=== PATIENT | male | born 1945 | race Caucasian/White ===

== ENCOUNTER 2016-11-21 12:23 | Emergency (ER) | payer MEDICARE ==
[~2016-11-21] VITALS: Ht 172.7 cm; Wt 68.0 kg
[~2016-11-21 12:23] MED LIST: GABA-826 PO; METH-356 PO; SULF1TAB24 PO
[2016-11-21] MEDS ORDERED: SODIUM CHLORIDE 0.9% 1,000 ML IV ONE (12:59)
[2016-11-21] MEDS ORDERED: MORPHINE SULFATE 4 MG/ML, 1ML IVPush PRN (13:00)
[2016-11-21] MEDS ORDERED: SODIUM CHLORIDE FLUSH 10ML SYR IVF ONE (13:00)
[2016-11-21] MEDS ORDERED: NICOTINE 21 MG/24 HR PATCH.TD24 TD ONE (13:00)
[2016-11-21] MEDS ORDERED: ASPIRIN 81 MG TABLET CHEW PO ONE (13:00)
[2016-11-21] MEDS ORDERED: MORPHINE SULFATE 4 MG/ML, 1ML ONE (13:12)
[2016-11-21] MEDS ORDERED: NICOTINE 14MG/24 HR PATCH.TD24 ONE (13:13)
[2016-11-21] MEDS ORDERED: ASPIRIN 81 MG TABLET CHEW ONE (13:13)
[2016-11-21] MEDS ORDERED: NICOTINE 21 MG/24 HR PATCH.TD24 ONE (13:30)
[2016-11-21 13:46] LABS: HEMATOCRIT 38.5 % (39.2-51.8); WHITE BLOOD COUNT 11.7 x10^3/uL (3.4-10)
[2016-11-21 13:47] LABS: BLOOD UREA NITROGEN 19 mg/dL (7-18)
[2016-11-21 13:53] LABS: IS PT STATUS REG ER OR PRE ER? YES
[2016-11-21 16:42] VITALS: BP 143/57
== END 2016-11-21 16:44 | disposition home or self-care (01) ==
LOC: ED 14:25
DX: J20.8 Acute bronchitis due to other specified organisms (principal); E11.9 Type 2 diabetes mellitus without complications; F17.200 Nicotine dependence, unspecified, uncomplicated
CPT/HCPCS: 36415; 71020; 80048; 82040; 83880; 84484; 85025; 93005; 96361; 96374; 99285; J7030

== ENCOUNTER 2017-03-23 06:00 | Emergency (ER) | payer MEDICARE ==
[~2017-03-23] VITALS: Ht 172.7 cm; Wt 64.0 kg
[2017-03-23] MEDS ORDERED: HYDROcodone/APAP 5/325 TABLET PO ONE (07:00)
[2017-03-23] MEDS ORDERED: HYDROcodone/APAP 5/325 TABLET ONE (07:31)
[2017-03-23 08:34] VITALS: BP 155/86
== END 2017-03-23 08:50 | disposition home or self-care (01) ==
LOC: ED 08:00
DX: S39.012A Strain of muscle, fascia and tendon of lower back, initial encounter (principal); E11.9 Type 2 diabetes mellitus without complications; M54.32 Sciatica, left side; X58.XXXA Exposure to other specified factors, initial encounter; Y93.89 Activity, other specified; Y92.89 Other specified places as the place of occurrence of the external cause; Y99.9 Unspecified external cause status
CPT/HCPCS: 99284

== ENCOUNTER 2017-05-05 20:51 | Emergency (ER) | payer MEDICARE ==
[2017-05-09] MEDS ORDERED: DOXY100T10 PO (14:52)
[2017-05-09] MEDS ORDERED: CEFD300C37 PO (14:52)
[2017-05-09] MEDS ORDERED: FLUT1BLS INH (14:52)
[2017-05-09] MEDS ORDERED: ASPI-621 PO (14:59)
== END 2017-05-05 22:22 | disposition home or self-care (01) ==
LOC: ED 21:12
DX: R11.2 Nausea with vomiting, unspecified (principal); E11.9 Type 2 diabetes mellitus without complications; Z59.0 Homelessness
CPT/HCPCS: 99283

== ENCOUNTER 2018-06-05 01:39 | Emergency (ER) | payer MEDICARE ==
[~2018-06-05] VITALS: Ht 175.3 cm; Wt 73.0 kg
[~2018-06-05 01:39] MED LIST changes: +ASPI81TA45 PO; +CEFD300C37 PO; +DOXY100T10 PO; +FLUT1BLS INH; -METH-356 PO; +METH10TA2 PO
[2018-06-05] MEDS ORDERED: HYDROcodone/APAP 5/325 TABLET PO STA (01:48)
[2018-06-05] MEDS ORDERED: HYDROcodone/APAP 5/325 TABLET ONE (01:52)
--- NOTE | 2018-06-05 01:56 | NUR ---
PT MEDICATED PER MAY. AWAITING XRAY
[2018-06-05 02:09] VITALS: BP 135/70
--- NOTE | 2018-06-05 02:28 | NUR ---
ORDER RECEIVED PT MAY HAVE DIET PER ERP, PROVIDED PT WITH SANDWICH AND JUICE
== END 2018-06-05 03:10 | disposition home or self-care (01) ==
LOC: ED 02:02
DX: S42.022A Displaced fracture of shaft of left clavicle, initial encounter for closed fracture (principal); E11.9 Type 2 diabetes mellitus without complications; W01.0XXA Fall on same level from slipping, tripping and stumbling without subsequent striking against object, initial encounter; Y93.89 Activity, other specified; Y92.009 Unspecified place in unspecified non-institutional (private) residence as the place of occurrence of the external cause; Y99.8 Other external cause status
CPT/HCPCS: 99283

== ENCOUNTER 2018-08-27 05:50 | Emergency (ER) | payer MEDICARE ==
[~2018-08-27] VITALS: Ht 175.3 cm; Wt 64.0 kg
[2018-08-27 05:51] VITALS: BP 137/90
[2018-08-27] MEDS ORDERED: OXYcodone/APAP 5/325MG TABLET ONE (06:20)
[2018-08-27] MEDS ORDERED: KETOROLAC 30 MG/1 ML ONE (06:20)
[2018-08-27] MEDS ORDERED: OXYcodone/APAP 5/325MG TABLET PO ONE (06:30)
[2018-08-27] MEDS ORDERED: KETOROLAC 30 MG/1 ML IM ONE (06:30)
--- NOTE | 2018-08-27 06:37 | NUR ---
PT. HAS BEEN MEDICATED PER MAR. PT. STATES "THIS 5MG IS NOTHING, IT WON'T DO NOTHING". PT. DID TAKE MEDS ORDERED PER MAY. PT. STATES "THEY CAME TO GET ME FOR X-RAY BUT I REFUSED BECAUSE I AM JUST IN TOO MUCH PAIN."
--- NOTE | 2018-08-27 06:50 | NUR ---
CALLED RADIOLOGY TO LET THEM KNOW PT. HAS HAD PAIN MEDS AND NEEDS X-RAYS NOW.
--- NOTE | 2018-08-27 07:00 | NUR ---
I AM ASSUMING CARE OF THIS PT FROM MAGGIE (BILLY) AT THIS TIME. SBAR REPORT WAS EXCHANGED AT THE BEDSIDE.
--- NOTE | 2018-08-27 07:07 | NUR ---
PT TO XR W TECH
== END 2018-08-27 07:58 | disposition home or self-care (01) ==
LOC: ED 07:54
DX: S33.5XXA Sprain of ligaments of lumbar spine, initial encounter (principal); E11.9 Type 2 diabetes mellitus without complications; W01.0XXA Fall on same level from slipping, tripping and stumbling without subsequent striking against object, initial encounter; Y93.89 Activity, other specified; Y92.89 Other specified places as the place of occurrence of the external cause; Y99.8 Other external cause status
CPT/HCPCS: 72110; 73502; 96372; 99283; J1885

== ENCOUNTER 2018-08-29 10:58 | Emergency (ER) | payer MEDICARE ==
[~2018-08-29] VITALS: Ht 175.3 cm; Wt 66.0 kg
[2018-08-29 11:01] VITALS: BP 157/94
--- NOTE | 2018-08-29 11:18 | NUR ---
MEDICAL STUDENT AT BEDSIDE EVALUATING PATIENT.
[2018-08-29] MEDS ORDERED: BUPRENORPHINE/NALOXONE 2-0.5MG SL ONE (12:00)
--- NOTE | 2018-08-29 14:26 | NUR ---
Lorie RN note: Pt was dc'd and walked out of department. Pt then came back to registration desk to ask for transport home. Pt offered bus pass for transport home. Pt declines this. Pt offered to use phone to call someone to come pick him up. Pt in lobby using phone.
== END 2018-08-29 14:29 | disposition home or self-care (01) ==
LOC: ED 14:23
DX: F11.23 Opioid dependence with withdrawal (principal); F17.200 Nicotine dependence, unspecified, uncomplicated; G89.29 Other chronic pain; E11.9 Type 2 diabetes mellitus without complications
CPT/HCPCS: 99283; J0572

== ENCOUNTER 2019-02-07 20:16 | Emergency (ER) | payer MEDICARE ==
[~2019-02-07] VITALS: Ht 172.7 cm; Wt 71.1 kg
[~2019-02-07 20:16] MED LIST changes: +BUPR1FIL SL; -DOXY100T10 PO; +DOXY100T23 PO; +OXYB5TAB2 PO
[2019-02-07 20:30] VITALS: BP 164/110
--- NOTE | 2019-02-07 23:52 | NUR ---
VAPE AND CAN WILDFIRE PREVENTION SPECIALIST IN SECURITY
--- NOTE | 2019-02-08 00:27 | NUR ---
pt states he just wants his perscription for antibiotics and wants to leave. pt asked for rx for suboxone, dr manzanares educated that is not an rx we can write here but we will give him abx for his pneumonia
--- NOTE | 2019-02-08 00:34 | NUR ---
pt provided with rx and ambulated with steady gait to the dc desk
== END 2019-02-08 00:36 | disposition home or self-care (01) ==
LOC: ED 23:54
DX: J15.9 Unspecified bacterial pneumonia (principal); Z72.9 Problem related to lifestyle, unspecified; F17.210 Nicotine dependence, cigarettes, uncomplicated; E11.9 Type 2 diabetes mellitus without complications
CPT/HCPCS: 71046; 99283; 99406

== ENCOUNTER 2019-02-08 06:52 | Emergency (ER) | payer MEDICARE ==
[~2019-02-08] VITALS: Ht 175.3 cm; Wt 70.0 kg
--- NOTE | 2019-02-08 07:30 | NUR ---
Pt to ER for cough and request that he be given medications for his pneumonia. Recent admission for PNX, states he was d/c w/out meds. Returned via ER yesterday and was given Rx for zithromax according to ED chart from 02/07. Pt states he was not given any meds or prescription. Occasional cough, no distress, refuses to wear gown after several requests "I'm fine, I don't need to put it on".
[2019-02-08] MEDS ORDERED: ALBUTEROL/IPRATROPIUM 2.5MG/0.5MG, 3 ML ONE (07:48)
[2019-02-08] MEDS ORDERED: ALBUTEROL/IPRATROPIUM 2.5MG/0.5MG, 3 ML NPPB ONE (08:00)
[2019-02-08 08:02] LABS: ALBUMIN 2.7 g/dL (3.4-5.0); ANION GAP 8 mmol/L (5-15); CALCIUM 8.4 mg/dL (8.5-10.1); CHLORIDE 106 mmol/L (98-107); CREATININE 0.93 mg/dL (0.7-1.3)
[2019-02-08 08:03] LABS: BASOPHILS # (AUTO) 0.06 x10^3/uL (0-0.1); BASOPHILS % (AUTO) 1 % (0-1); EOSINOPHILS # (AUTO) 0.09 x10^3/uL (0-0.4); EOSINOPHILS % (AUTO) 1 % (1-7); LYMPHOCYTES # (AUTO) 1.84 x10^3/uL (1-3.4); LYMPHOCYTES % (AUTO) 20 % (22-44); MD NO; MEAN CORPUSCULAR HGB CONC 32.9 g/dL (33.2-36.2); MEAN PLATELET VOLUME 7.7 fL (7.4-10.4); MONOCYTES # (AUTO) 1.03 x10^3/uL (0.2-0.8); MONOCYTES % (AUTO) 11 % (2-9); NEUTROPHILS # (AUTO) 6.38 x10^3/uL (1.8-6.8); NEUTROPHILS % (AUTO) 68 % (42-75); PLATELET COUNT 243 x10^3/uL (130-400); RED CELL DISTRIBUTION WIDTH 13.7 % (9.4-14.8)
--- NOTE | 2019-02-08 08:07 | NUR ---
Pt sleeping after duoneb. On continuous pulse oximetry, 82-88% while sleeping. Placed on 2 liters via NC: 90%.
[2019-02-08] MEDS ORDERED: LEVOFLOXACIN 750 MG TABLET PO ONE (08:30)
[2019-02-08] MEDS ORDERED: LEVOFLOXACIN 750 MG TABLET ONE (09:07)
--- NOTE | 2019-02-08 09:17 | NUR ---
Medicated as per emar. Patient given discharge instructions and they have confirmed that they understand the instructions. Patient ambulatory with steady gait. Rx assistance info provided. Noticed d/c papers & rx from previous visit as well & pointed this out to pt where it was located so he does not misplace it again.
[2019-02-08 09:18] VITALS: BP 117/67
== END 2019-02-08 09:20 | disposition home or self-care (01) ==
LOC: ED 08:57
DX: J18.0 Bronchopneumonia, unspecified organism (principal); E11.9 Type 2 diabetes mellitus without complications; F17.200 Nicotine dependence, unspecified, uncomplicated; Z72.9 Problem related to lifestyle, unspecified; Z59.0 Homelessness
CPT/HCPCS: 36415; 80048; 82040; 83605; 84145; 85025; 94640; 99283; J7620

== ENCOUNTER 2019-04-15 00:49 | Inpatient (IN) | payer MEDICARE ==
[~2019-04-15] VITALS: Ht 172.7 cm; Wt 70.3 kg
[~2019-04-15 00:49] MED LIST changes: +OXYB-39 PO; -OXYB5TAB2 PO
--- NOTE | 2019-04-15 00:50 | NUR ---
BIB [facility] FROM [facility] WHERE PT WAS FOUND LAYING IN [place]. HYPOXIC ON SCENE, SPO2 80'S ON RA. RR 8-12. IMPROVED TO >90% ON 2L BY NC. PT MOSTLY SLEEPY BUT ARROUSABLE TO VOICE AND LIGHT PHYSICAL STIM. ONCE AWAKENED PT A&OX4, SPEECH CLEAR AND FOLLOWS ALL COMMANDS. PT QUICKLY FALLS BACK TO SLEEP. FACE SYMMETRICAL, +STRENGTH X ALL EXTREMITIES. NO OPEN WOUNDS OR EVIDENCE OF TRAUMA. FSBS CAR DISPATCHER 160 BP/SPO2/ECG MONITORING IN PLACE. NSR ON MONITOR.
[2019-04-15] MEDS ORDERED: SODIUM CHLORIDE FLUSH 10ML SYR IVF ONE (01:30)
[2019-04-15] MEDS ORDERED: PIPERACILLIN/TAZO/PMX 4.5GM 100 ML IV ONE (01:30)
[2019-04-15] MEDS ORDERED: SODIUM CHLORIDE 0.9% 1,000ML IVBOLUS ONE (01:30)
--- NOTE | 2019-04-15 01:30 | NUR ---
RR 8-12. SPO2 >90% ON 2L BY NC. PT REMAINS EASILY ARROUSABLE TO VOICE.
[2019-04-15 01:32] LABS: ALANINE AMINOTRANSFERASE 15 U/L (12-78); ALBUMIN 3.3 g/dL (3.4-5.0); ANION GAP 8 mmol/L (5-15); BASOPHILS # (AUTO) 0.03 x10^3/uL (0-0.1); BASOPHILS % (AUTO) 1 % (0-1); CHLORIDE 106 mmol/L (98-107); CREATININE 1.34 mg/dL (0.7-1.3); EOSINOPHILS # (AUTO) 0.02 x10^3/uL (0-0.4); EOSINOPHILS % (AUTO) 0 % (1-7); LYMPHOCYTES # (AUTO) 1.17 x10^3/uL (1-3.4); LYMPHOCYTES % (AUTO) 21 % (22-44); MD NO; MEAN CORPUSCULAR HEMOGLOBIN 26.7 pg (27.5-34.5); MEAN CORPUSCULAR HGB CONC 33.4 g/dL (33.2-36.2); MEAN CORPUSCULAR VOLUME 80.1 fL (81-97); MEAN PLATELET VOLUME 7.8 fL (7.4-10.4); MONOCYTES # (AUTO) 0.95 x10^3/uL (0.2-0.8); MONOCYTES % (AUTO) 17 % (2-9); NEUTROPHILS % (AUTO) 61 % (42-75); PLATELET COUNT 197 x10^3/uL (130-400); RED BLOOD COUNT 5.24 x10^6/uL (4.38-5.82); RED CELL DISTRIBUTION WIDTH 15.8 % (9.4-14.8)
[2019-04-15 01:34] LABS: ALKALINE PHOSPHATASE 96 U/L (45-117); BILIRUBIN,TOTAL 0.5 mg/dL (0.2-1.0); TOTAL PROTEIN 7.4 g/dL (6.4-8.2)
--- NOTE | 2019-04-15 02:00 | NUR ---
ABX INITIATED PER ORDER. BC X2 DRAWN PRIOR TO ABX ADMIN. ETCO2 PLACED, 44. PT CONTINUES TO BE MOSTLY DROWSY, EASILY ARROUSABLE TO VOICE THEN RETURNS QUICKLY TO SLEEP. AIRWAY REMAINS PATENT.
[2019-04-15] MEDS ORDERED: LACTATED RINGERS 1,000 ML IV SCH (03:00)
[2019-04-15] MEDS ORDERED: ACETAMINOPHEN 325 MG TABLET PO PRN (03:00)
[2019-04-15] MEDS ORDERED: PHARMACY MAY ADJ FOR RENAL FX MC PRN (03:00)
[2019-04-15 03:17] LABS: TROPONIN I < 0.015 ng/mL (0.000-0.045)
[2019-04-15 03:37] VITALS: BP 125/74
[2019-04-15 03:37] LABS: FREE T4 (FREE THYROXINE) 1.06 ng/dL (0.76-1.46)
[2019-04-15 06:18] VITALS: BP 135/74
[2019-04-15 06:20] VITALS: BP 131/63
[2019-04-15 06:25] VITALS: BP 120/80
[2019-04-15] MEDS: PIPERACILLIN/TAZO/PMX 3.375GM 50 ML IV SCH ×3 (07:45→20:20)
[2019-04-15 09:19] LABS: TROPONIN I < 0.015 ng/mL (0.000-0.045)
[2019-04-15] MEDS: NICOTINE 21 MG/24 HR PATCH.TD24 TD SCH (12:05)
[2019-04-15 12:16] VITALS: BP 132/60
[2019-04-15 14:51] LABS: MICROSCOPIC AUTO
[2019-04-15 14:56] LABS: CULTURE INDICATED? NO
[2019-04-15 14:59] LABS: AMPHETAMINE SCREEN, URINE Negative (Negative); BARBITURATE SCREEN, URINE Negative (Negative); BENZODIAZEPINE SCREEN, URINE Negative (Negative); CANNABINOID SCREEN, URINE Negative (Negative); COCAINE SCREEN, URINE Positive (Negative); METHADONE SCREEN, URINE Negative (Negative); OPIATE SCREEN, URINE Positive (Negative)
[2019-04-15 19:33] VITALS: BP 146/81
[2019-04-15] MEDS: LORazepam 2 MG/ML, 1ML IVPush PRN (21:10)
[2019-04-16] VITALS (7 sets, daily range): BP systolic 122–181; BP diastolic 65–95
[2019-04-16] MEDS: PIPERACILLIN/TAZO/PMX 3.375GM 50 ML IV SCH ×4 (01:35→20:30)
[2019-04-16] MEDS: LORazepam 2 MG/ML, 1ML IVPush PRN ×2 (06:26→15:12)
[2019-04-16] MEDS ORDERED: SODIUM CHLORIDE 0.9% 1,000 ML IV SCH (10:00)
[2019-04-16 11:02] LABS: ANION GAP 7 mmol/L (5-15); CALCIUM 8.5 mg/dL (8.5-10.1); CHLORIDE 110 mmol/L (98-107); CREATININE 1.43 mg/dL (0.7-1.3)
[2019-04-16 11:42] LABS: CLOSTRIDIUM DIFFICILE ANTIGEN NEGATIVE; CLOSTRIDIUM DIFFICILE TOXIN NEGATIVE (Negative)
[2019-04-16] MEDS: NICOTINE 21 MG/24 HR PATCH.TD24 TD SCH (12:26)
[2019-04-16] MEDS: LOPERAMIDE 2 MG CAPSULE PO SCH ×2 (13:10→20:30)
[2019-04-16] MEDS: AMLODIPINE 5 MG TABLET PO SCH ×2 (14:22→20:30)
[2019-04-16] MEDS ORDERED: hydrALAzine 20 MG/ML, 1ML IV PRN (14:30)
[2019-04-16] MEDS: SODIUM CHLORIDE 0.9% 1,000 ML IV SCH (17:06)
[2019-04-16] MEDS: METHADONE 10 MG TABLET PO SCH (17:06)
[2019-04-17] MEDS: METHADONE 10 MG TABLET PO SCH ×3 (00:50→16:30)
[2019-04-17 01:01] VITALS: BP 156/76
[2019-04-17] MEDS: PIPERACILLIN/TAZO/PMX 3.375GM 50 ML IV SCH ×4 (01:49→23:21)
[2019-04-17] MEDS: SODIUM CHLORIDE 0.9% 1,000 ML IV SCH ×2 (01:52→15:48)
[2019-04-17] MEDS: LOPERAMIDE 2 MG CAPSULE PO SCH ×4 (01:52→21:57)
[2019-04-17 06:14] LABS: ANION GAP 6 mmol/L (5-15); CALCIUM 8.2 mg/dL (8.5-10.1); CHLORIDE 109 mmol/L (98-107)
[2019-04-17 06:15] LABS: CREATININE 1.11 mg/dL (0.7-1.3)
[2019-04-17 07:22] VITALS: BP 169/88
[2019-04-17] MEDS: NICOTINE 21 MG/24 HR PATCH.TD24 TD SCH (08:10)
[2019-04-17] MEDS: AMLODIPINE 5 MG TABLET PO SCH ×2 (08:10→21:57)
[2019-04-17 13:55] VITALS: BP 174/86
[2019-04-17] MEDS ORDERED: HALOPERIDOL 5 MG/ML ONE (13:57)
[2019-04-17] MEDS ORDERED: HALOPERIDOL 5 MG/ML IM PRN (14:00)
[2019-04-17 21:11] VITALS: BP 150/88
[2019-04-17] MEDS: QUETIAPINE 25MG TABLET PO SCH (21:57)
[2019-04-18 01:15] VITALS: BP 133/69
[2019-04-18] MEDS: METHADONE 10 MG TABLET PO SCH ×3 (01:27→17:00)
[2019-04-18] MEDS: LOPERAMIDE 2 MG CAPSULE PO SCH ×4 (01:28→20:33)
[2019-04-18] MEDS: PIPERACILLIN/TAZO/PMX 3.375GM 50 ML IV SCH ×4 (05:33→22:57)
[2019-04-18 08:54] VITALS: BP 156/89
[2019-04-18] MEDS: AMLODIPINE 5 MG TABLET PO SCH ×2 (09:25→20:33)
[2019-04-18] MEDS: SODIUM CHLORIDE 0.9% 1,000 ML IV SCH (09:25)
[2019-04-18] MEDS: NICOTINE 21 MG/24 HR PATCH.TD24 TD SCH (11:13)
[2019-04-18 14:35] VITALS: BP 132/77
[2019-04-18 19:37] VITALS: BP 114/68
[2019-04-18] MEDS: QUETIAPINE 25MG TABLET PO SCH (20:33)
[2019-04-19 00:52] VITALS: BP 110/71
[2019-04-19] MEDS: METHADONE 10 MG TABLET PO SCH ×3 (01:16→17:22)
[2019-04-19] MEDS: LOPERAMIDE 2 MG CAPSULE PO SCH ×4 (01:16→20:05)
[2019-04-19] MEDS: PIPERACILLIN/TAZO/PMX 3.375GM 50 ML IV SCH ×4 (05:24→23:13)
[2019-04-19 06:48] VITALS: BP 138/76
[2019-04-19] MEDS: AMLODIPINE 5 MG TABLET PO SCH ×2 (08:32→20:05)
[2019-04-19 11:02] LABS: ALANINE AMINOTRANSFERASE 24 U/L (12-78); ALBUMIN 2.9 g/dL (3.4-5.0); ANION GAP 7 mmol/L (5-15); CALCIUM 8.2 mg/dL (8.5-10.1); CHLORIDE 106 mmol/L (98-107); CREATININE 1.09 mg/dL (0.7-1.3)
[2019-04-19 11:04] LABS: ALKALINE PHOSPHATASE 76 U/L (45-117); BILIRUBIN,TOTAL 0.7 mg/dL (0.2-1.0); TOTAL PROTEIN 7.1 g/dL (6.4-8.2)
[2019-04-19] MEDS: NICOTINE 21 MG/24 HR PATCH.TD24 TD SCH (12:45)
[2019-04-19 13:23] VITALS: BP 157/77
[2019-04-19 19:44] VITALS: BP 147/63
[2019-04-19] MEDS: QUETIAPINE 25MG TABLET PO SCH (20:05)
[2019-04-20 00:39] VITALS: BP 157/95
[2019-04-20] MEDS: METHADONE 10 MG TABLET PO SCH ×2 (01:00→08:53)
[2019-04-20] MEDS: LOPERAMIDE 2 MG CAPSULE PO SCH ×4 (01:37→21:06)
[2019-04-20 02:02] VITALS: BP 140/76
[2019-04-20] MEDS ORDERED: POTASSIUM PHOSPHATE 22 MEQ in SODIUM CHLORIDE 0.9% 500 ML IV ONE (03:00)
[2019-04-20] MEDS: PIPERACILLIN/TAZO/PMX 3.375GM 50 ML IV SCH ×4 (05:25→22:54)
[2019-04-20 06:39] VITALS: BP 151/79
[2019-04-20] MEDS ORDERED: MAGNESIUM SULFATE/D5W 100 ML IV ONE (08:00)
[2019-04-20] MEDS: AMLODIPINE 5 MG TABLET PO SCH ×2 (08:38→21:06)
[2019-04-20] MEDS ORDERED: NALOXONE 1 MG/ML, 2ML IVPush ONE (09:00)
[2019-04-20] MEDS ORDERED: METHADONE 10 MG TABLET PO SCH (09:30)
[2019-04-20] MEDS ORDERED: METHADONE 5 MG TABLET ONE (09:32)
[2019-04-20] MEDS: NICOTINE 21 MG/24 HR PATCH.TD24 TD SCH (09:34)
[2019-04-20] MEDS: METHADONE 5 MG TABLET PO SCH ×4 (09:34→21:14)
[2019-04-20 12:19] VITALS: BP 135/73
[2019-04-20] MEDS ORDERED: FUROSEMIDE 40 MG/4 ML IV ONE (17:30)
[2019-04-20 18:33] VITALS: BP 118/61
[2019-04-20] MEDS: QUETIAPINE 25MG TABLET PO SCH ×2 (21:06→21:11)
[2019-04-21] MEDS: LOPERAMIDE 2 MG CAPSULE PO SCH ×4 (01:30→20:08)
[2019-04-21 01:47] VITALS: BP 118/67
[2019-04-21] MEDS: PIPERACILLIN/TAZO/PMX 3.375GM 50 ML IV SCH ×4 (05:08→23:07)
[2019-04-21 06:43] VITALS: BP 141/68
[2019-04-21] MEDS: AMLODIPINE 5 MG TABLET PO SCH ×2 (08:17→20:08)
[2019-04-21] MEDS: METHADONE 5 MG TABLET PO SCH ×2 (09:46→20:08)
[2019-04-21 11:00] LABS: ANION GAP 9 mmol/L (5-15); BASOPHILS # (AUTO) 0.02 x10^3/uL (0-0.1); BASOPHILS % (AUTO) 0 % (0-1); CALCIUM 8.4 mg/dL (8.5-10.1); CHLORIDE 104 mmol/L (98-107); EOSINOPHILS # (AUTO) 0.07 x10^3/uL (0-0.4); EOSINOPHILS % (AUTO) 1 % (1-7); HEMOGRAM NOTE RECHECKED; LYMPHOCYTES # (AUTO) 2.41 x10^3/uL (1-3.4); LYMPHOCYTES % (AUTO) 19 % (22-44); MD NO; MEAN CORPUSCULAR HEMOGLOBIN 26.5 pg (27.5-34.5); MEAN CORPUSCULAR HGB CONC 32.5 g/dL (33.2-36.2); MEAN CORPUSCULAR VOLUME 81.4 fL (81-97); MEAN PLATELET VOLUME 7.9 fL (7.4-10.4); MONOCYTES # (AUTO) 0.74 x10^3/uL (0.2-0.8); MONOCYTES % (AUTO) 6 % (2-9); NEUTROPHILS # (AUTO) 9.66 x10^3/uL (1.8-6.8); NEUTROPHILS % (AUTO) 75 % (42-75); PLATELET COUNT 259 x10^3/uL (130-400); RED CELL DISTRIBUTION WIDTH 16.5 % (9.4-14.8)
[2019-04-21 11:01] LABS: CREATININE 1.26 mg/dL (0.7-1.3)
[2019-04-21] MEDS: NICOTINE 21 MG/24 HR PATCH.TD24 TD SCH (11:17)
[2019-04-21 12:03] VITALS: BP 142/70
[2019-04-21] MEDS ORDERED: SODIUM CHLORIDE 0.9% 1,000 ML IV SCH ×2 (17:30)
[2019-04-21 19:16] VITALS: BP 157/82
[2019-04-21] MEDS: QUETIAPINE 25MG TABLET PO SCH (20:08)
[2019-04-22 00:47] VITALS: BP 148/71
[2019-04-22] MEDS: LOPERAMIDE 2 MG CAPSULE PO SCH ×4 (00:53→20:45)
[2019-04-22] MEDS: PIPERACILLIN/TAZO/PMX 3.375GM 50 ML IV SCH ×4 (05:05→23:17)
[2019-04-22 07:11] VITALS: BP 138/79
[2019-04-22 07:54] LABS: ALBUMIN 2.5 g/dL (3.4-5.0); ANION GAP 6 mmol/L (5-15); CALCIUM 7.9 mg/dL (8.5-10.1); CHLORIDE 104 mmol/L (98-107)
[2019-04-22 07:57] LABS: BASOPHILS # (AUTO) 0.02 x10^3/uL (0-0.1); BASOPHILS % (AUTO) 0 % (0-1); EOSINOPHILS # (AUTO) 0.08 x10^3/uL (0-0.4); EOSINOPHILS % (AUTO) 1 % (1-7); LYMPHOCYTES # (AUTO) 3.45 x10^3/uL (1-3.4); LYMPHOCYTES % (AUTO) 28 % (22-44); MD NO; MEAN CORPUSCULAR HEMOGLOBIN 26.7 pg (27.5-34.5); MEAN CORPUSCULAR HGB CONC 32.7 g/dL (33.2-36.2); MEAN CORPUSCULAR VOLUME 81.7 fL (81-97); MEAN PLATELET VOLUME 7.5 fL (7.4-10.4); MONOCYTES # (AUTO) 0.93 x10^3/uL (0.2-0.8); MONOCYTES % (AUTO) 8 % (2-9); NEUTROPHILS % (AUTO) 63 % (42-75); PLATELET COUNT 244 x10^3/uL (130-400); RED BLOOD COUNT 5.45 x10^6/uL (4.38-5.82); RED CELL DISTRIBUTION WIDTH 15.6 % (9.4-14.8)
[2019-04-22 07:58] LABS: ALANINE AMINOTRANSFERASE 15 U/L (12-78); ALKALINE PHOSPHATASE 68 U/L (45-117); BILIRUBIN,TOTAL 0.6 mg/dL (0.2-1.0); CREATININE 0.97 mg/dL (0.7-1.3); TOTAL PROTEIN 6.7 g/dL (6.4-8.2)
[2019-04-22] MEDS: AMLODIPINE 5 MG TABLET PO SCH ×2 (08:57→20:45)
[2019-04-22] MEDS: METHADONE 5 MG TABLET PO SCH ×2 (08:57→20:45)
[2019-04-22] MEDS: NICOTINE 21 MG/24 HR PATCH.TD24 TD SCH (13:00)
[2019-04-22 13:32] VITALS: BP 101/58
[2019-04-22] MEDS ORDERED: METH5TAB2 PO (14:47)
[2019-04-22] MEDS ORDERED: TIOT18CA INH (14:47)
[2019-04-22] MEDS ORDERED: LOPE2CAP PO (14:47)
[2019-04-22] MEDS ORDERED: PRED20TA PO (14:47)
[2019-04-22] MEDS ORDERED: AMLO-150 PO (14:47)
[2019-04-22] MEDS ORDERED: IPRA3AMP30 INH (14:47)
[2019-04-22] MEDS ORDERED: FLUT1DIS IH (14:47)
[2019-04-22] MEDS ORDERED: NICO-487 TD (14:47)
[2019-04-22] MEDS ORDERED: QUET25TA7 PO (14:47)
[2019-04-22] MEDS ORDERED: CEFD300C37 PO (14:48)
[2019-04-22] MEDS ORDERED: AZIT500T10 PO (14:48)
[2019-04-22 18:43] VITALS: BP 120/64
[2019-04-22 20:42] VITALS: BP 144/76
[2019-04-22] MEDS: QUETIAPINE 25MG TABLET PO SCH (20:45)
[2019-04-23 02:33] VITALS: BP 135/69
[2019-04-23] MEDS: PIPERACILLIN/TAZO/PMX 3.375GM 50 ML IV SCH ×4 (05:06→21:11)
[2019-04-23] MEDS: LOPERAMIDE 2 MG CAPSULE PO SCH ×4 (05:06→20:07)
[2019-04-23] MEDS: METHADONE 5 MG TABLET PO SCH ×2 (09:02→20:07)
[2019-04-23] MEDS: AMLODIPINE 5 MG TABLET PO SCH ×2 (09:02→20:07)
[2019-04-23] MEDS: NICOTINE 21 MG/24 HR PATCH.TD24 TD SCH (10:48)
[2019-04-23] MEDS ORDERED: HEPARIN 5,000 UNITS/ML, 1ML ONE (15:14)
[2019-04-23 20:06] VITALS: BP 123/87
[2019-04-23] MEDS: QUETIAPINE 25MG TABLET PO SCH (20:07)
[2019-04-24 00:56] VITALS: BP 146/73
[2019-04-24] MEDS: PIPERACILLIN/TAZO/PMX 3.375GM 50 ML IV SCH (05:00)
[2019-04-24] MEDS: LOPERAMIDE 2 MG CAPSULE PO SCH ×3 (05:28→15:08)
[2019-04-24 08:20] VITALS: BP 150/68
[2019-04-24] MEDS ORDERED: METH5TAB2 PO ×2 (08:32→16:03)
[2019-04-24] MEDS ORDERED: CEFDINIR 300 MG CAPSULE PO SCH (09:00)
[2019-04-24] MEDS ORDERED: AZITHROMYCIN 500 MG TABLET PO SCH (09:00)
[2019-04-24] MEDS: METHADONE 5 MG TABLET PO SCH ×3 (09:28→15:08)
[2019-04-24] MEDS: AMLODIPINE 5 MG TABLET PO SCH (09:28)
[2019-04-24] MEDS: NICOTINE 21 MG/24 HR PATCH.TD24 TD SCH (12:30)
[2019-04-24 14:15] VITALS: BP 118/72
== END 2019-04-24 18:22 | DRG 917 ==
LOC: ED 02:09 → EDIP 02:28 → 4EST 02:42
PROVIDERS: ADMIT Family Medicine; ATTEND Internal Medicine
DX: T50.901A Poisoning by unspecified drugs, medicaments and biological substances, accidental (unintentional), initial encounter (principal); J69.0 Pneumonitis due to inhalation of food and vomit; G92 Toxic encephalopathy; N17.0 Acute kidney failure with tubular necrosis; J96.01 Acute respiratory failure with hypoxia; F11.23 Opioid dependence with withdrawal; J44.1 Chronic obstructive pulmonary disease with (acute) exacerbation; E11.9 Type 2 diabetes mellitus without complications; F17.210 Nicotine dependence, cigarettes, uncomplicated; G62.9 Polyneuropathy, unspecified; N40.0 Benign prostatic hyperplasia without lower urinary tract symptoms; Y92.89 Other specified places as the place of occurrence of the external cause; Z82.49 Family history of ischemic heart disease and other diseases of the circulatory system; Z59.0 Homelessness
CPT/HCPCS: 36415; 36600; 70450; 71045; 71260; 80048; 80053; 80307; 81001; 82803; 83605; 83735; 83880; 84100; 84145; 84439; 84443; 84484; 85025; 87040; 87324; 93005; 93306; 96361; 96365; 99285; G0378; J1940; J2543; J0360; J1630; J2060; J2310; J7030; J7040; J7120; J7512

== ENCOUNTER 2019-05-30 14:21 | Emergency (ER) | payer MEDICARE ==
[~2019-05-30] VITALS: Ht 172.7 cm; Wt 71.7 kg
[~2019-05-30 14:21] MED LIST changes: +AMLO-150 PO; +AZIT500T10 PO; +FLUT1DIS IH; +IPRA3AMP30 INH; +LOPE2CAP PO; +METH5TAB2 PO; +NICO-487 TD; +PRED20TA PO; +QUET25TA7 PO; +TIOT18CA INH
--- NOTE | 2019-05-30 14:39 | NUR ---
PT CAME IN CO OF SOB AND COUGHING UP YELLOW PHLEGM. PT SAYS " I GET REALLY SOB WHEN I EXERT MYSELF". PT WAS TREATED FOR PNEUMONIA A MONTH AGO AND WAS ADMITTED. PT IS CONNECTED TO VARNISH INSPECTOR. EKG COMPLETE. CALL LIGHT WITHIN REACH
[2019-05-30 15:23] LABS: BASOPHILS # (AUTO) 0.07 x10^3/uL (0-0.1); BASOPHILS % (AUTO) 1 % (0-1); EOSINOPHILS # (AUTO) 0.19 x10^3/uL (0-0.4); EOSINOPHILS % (AUTO) 2 % (1-7); LYMPHOCYTES # (AUTO) 3.33 x10^3/uL (1-3.4); LYMPHOCYTES % (AUTO) 31 % (22-44); MD NO; MEAN CORPUSCULAR HGB CONC 33.1 g/dL (33.2-36.2); MEAN CORPUSCULAR VOLUME 81.6 fL (81-97); MEAN PLATELET VOLUME 6.8 fL (7.4-10.4); MONOCYTES # (AUTO) 0.73 x10^3/uL (0.2-0.8); MONOCYTES % (AUTO) 7 % (2-9); NEUTROPHILS # (AUTO) 6.33 x10^3/uL (1.8-6.8); NEUTROPHILS % (AUTO) 60 % (42-75); PLATELET COUNT 369 x10^3/uL (130-400); RED BLOOD COUNT 5.43 x10^6/uL (4.38-5.82); RED CELL DISTRIBUTION WIDTH 16.7 % (9.4-14.8)
[2019-05-30 15:36] LABS: ALANINE AMINOTRANSFERASE 17 U/L (12-78); ALBUMIN 3.3 g/dL (3.4-5.0); ANION GAP 4 mmol/L (5-15); CALCIUM 8.9 mg/dL (8.5-10.1); CHLORIDE 111 mmol/L (98-107); CREATININE 1.02 mg/dL (0.7-1.3)
[2019-05-30 15:40] VITALS: BP 118/57
[2019-05-30 15:40] LABS: ALKALINE PHOSPHATASE 115 U/L (45-117); BILIRUBIN,TOTAL 0.2 mg/dL (0.2-1.0); TOTAL PROTEIN 7.2 g/dL (6.4-8.2); TROPONIN I < 0.015 ng/mL (0.000-0.045)
== END 2019-05-30 16:27 | disposition home or self-care (01) ==
LOC: ED 14:42
DX: J44.1 Chronic obstructive pulmonary disease with (acute) exacerbation (principal); J18.0 Bronchopneumonia, unspecified organism; E11.9 Type 2 diabetes mellitus without complications
CPT/HCPCS: 36415; 71045; 80053; 83880; 84484; 85025; 93005; 99285

== ENCOUNTER 2019-06-14 20:32 | Emergency (ER) | payer MEDICARE ==
[~2019-06-14] VITALS: Ht 172.7 cm; Wt 71.1 kg
[2019-06-14 20:40] VITALS: BP 143/87
--- NOTE | 2019-06-14 20:56 | NUR ---
PT BIB EMS FOR PRODUCTIVE COUGH X2 WKS, PT STS RECENT DX OF PNA WAS DCd WITH ABX THAT WERE STOLEN. DENIES, CP, SORE THROAT AT THIS TIME. CONNECTED TO ALL MONITORING, VSS AT THIS TIME. AFEBRILE ON ARRIVAL. PA AT BEDSIDE. ORDERS RECEIVED. CALL LIGHT WITHIN REACH. AWAITING TESTING AND RESULTS AT THIS TIME
[2019-06-14 21:42] LABS: BASOPHILS # (AUTO) 0.05 x10^3/uL (0-0.1); BASOPHILS % (AUTO) 1 % (0-1); EOSINOPHILS # (AUTO) 0.13 x10^3/uL (0-0.4); EOSINOPHILS % (AUTO) 1 % (1-7); LYMPHOCYTES # (AUTO) 2.44 x10^3/uL (1-3.4); LYMPHOCYTES % (AUTO) 22 % (22-44); MD NO; MEAN CORPUSCULAR HEMOGLOBIN 27.5 pg (27.5-34.5); MEAN CORPUSCULAR HGB CONC 33.6 g/dL (33.2-36.2); MEAN CORPUSCULAR VOLUME 81.8 fL (81-97); MEAN PLATELET VOLUME 7.6 fL (7.4-10.4); MONOCYTES # (AUTO) 1.11 x10^3/uL (0.2-0.8); MONOCYTES % (AUTO) 10 % (2-9); NEUTROPHILS # (AUTO) 7.28 x10^3/uL (1.8-6.8); NEUTROPHILS % (AUTO) 66 % (42-75); PLATELET COUNT 224 x10^3/uL (130-400); RED BLOOD COUNT 5.14 x10^6/uL (4.38-5.82)
[2019-06-14 21:55] LABS: ALBUMIN 3.4 g/dL (3.4-5.0); ANION GAP 6 mmol/L (5-15); CALCIUM 8.8 mg/dL (8.5-10.1); CHLORIDE 106 mmol/L (98-107)
[2019-06-14 21:58] LABS: ALANINE AMINOTRANSFERASE 18 U/L (12-78); ALKALINE PHOSPHATASE 93 U/L (45-117); BILIRUBIN,TOTAL 1.7 mg/dL (0.2-1.0); CREATININE 1.02 mg/dL (0.7-1.3); TOTAL PROTEIN 7.2 g/dL (6.4-8.2)
--- NOTE | 2019-06-14 22:03 | NUR ---
ALL RESULTS BACK AT THIS TIME, CHART UP FOR RECHECK
--- NOTE | 2019-06-14 22:08 | NUR ---
Report received from Sara Martínez RN. THis RN to assume care.
--- NOTE | 2019-06-14 22:47 | NUR ---
Discharge instructions given. Patient unwilling to cooperate. Patient ambulatory with a steady gait. Belongings with patient. Security called to escort patient.
== END 2019-06-14 22:49 | disposition home or self-care (01) ==
LOC: ED 20:40
DX: J44.1 Chronic obstructive pulmonary disease with (acute) exacerbation (principal); L03.116 Cellulitis of left lower limb; E11.9 Type 2 diabetes mellitus without complications; G89.29 Other chronic pain
CPT/HCPCS: 36415; 71045; 80053; 84550; 85025; 99285

== ENCOUNTER 2019-07-30 15:35 | Emergency (ER) | payer MEDICARE, OTHER ==
[~2019-07-30] VITALS: Ht 175.3 cm; Wt 83.0 kg
[~2019-07-30 15:35] MED LIST changes: +ALBU18HF INH; +AMOX1TAB64 PO; +METH4TAB2 PO; +NICO-485 TD; +NICO-486 TD
--- NOTE | 2019-07-30 15:49 | NUR ---
BIB [facility] FROM [facility], FOR HEROIN REHAB X3 DAYS. PT SENT FOR LETHARGY AND HALLUCINATIONS. PER [facility], PT BASELINE HAS NOT CHANGED SINCE BEING AT [facility], A&OX4, DOES NOT HAVE LOGICAL CONVERSATIONS, EASILY AGITATED. PT CONNECTED TO MONITORING. CALL LIGHT IN REACH. MD AT BEDSIDE FOR ASSESSMENT.
[2019-07-30 16:24] LABS: BASOPHILS # (AUTO) 0.03 x10^3/uL (0-0.1); BASOPHILS % (AUTO) 0 % (0-1); EOSINOPHILS # (AUTO) 0.42 x10^3/uL (0-0.4); EOSINOPHILS % (AUTO) 5 % (1-7); LYMPHOCYTES # (AUTO) 3.23 x10^3/uL (1-3.4); LYMPHOCYTES % (AUTO) 38 % (22-44); MD NO; MEAN CORPUSCULAR HEMOGLOBIN 26.9 pg (27.5-34.5); MEAN CORPUSCULAR HGB CONC 32.8 g/dL (33.2-36.2); MEAN PLATELET VOLUME 7.4 fL (7.4-10.4); MONOCYTES # (AUTO) 0.75 x10^3/uL (0.2-0.8); MONOCYTES % (AUTO) 9 % (2-9); NEUTROPHILS % (AUTO) 47 % (42-75); PLATELET COUNT 243 x10^3/uL (130-400); RED BLOOD COUNT 5.47 x10^6/uL (4.38-5.82); RED CELL DISTRIBUTION WIDTH 15.1 % (9.4-14.8)
[2019-07-30 16:32] LABS: ALANINE AMINOTRANSFERASE 14 U/L (12-78); ALBUMIN 3.2 g/dL (3.4-5.0); ANION GAP 6 mmol/L (5-15); CALCIUM 9.1 mg/dL (8.5-10.1); CHLORIDE 107 mmol/L (98-107)
[2019-07-30 16:35] LABS: ALKALINE PHOSPHATASE 85 U/L (45-117); BILIRUBIN,TOTAL 0.6 mg/dL (0.2-1.0); CREATININE 0.99 mg/dL (0.7-1.3); TOTAL PROTEIN 6.9 g/dL (6.4-8.2)
--- NOTE | 2019-07-30 16:50 | NUR ---
PT REFUSING TO URINATE. URINAL AT BEDSIDE.
--- NOTE | 2019-07-30 17:27 | NUR ---
PT SITTING UP ON GURNEY. PT APPEARS TO BE SLEEPING SITTING UP AND ANSWERS WHEN HIS HAND IS TOUCHED AND THEN CLOSES HIS EYES AGAIN. PT REFUSING TO URINATE.
--- NOTE | 2019-07-30 18:30 | NUR ---
BREAK RN: ATTEMPTED TO GET PT UP TO USE URINAL PT WAS SITTING ON EDGE OF BED AND STATED "I HAVE TO PEE". WHEN RN ATTEMPTED TO HELP PT, PT FALLING ASLEEP AND DROWSY. PT THEN SNAPPED AT NURSE STATING "WHAT ARE YOU DOING?". PT ASSISTED BACK TO BED. PT HAD URINATED ON BED. PT REFUSED TO LET RN CHANGE SHEETS STATING "WHAT ARE YOU DOING? LEAVE ME ALONE." PT ON CONT BP AND SPO2 MONITORS.
[2019-07-30 19:28] VITALS: BP 122/77
--- NOTE | 2019-07-30 20:30 | NUR ---
ORDER PACKER ATTEMPTED TO AMBULATE PT FOR ROAD TEST FOR SAFE DISCHARGE. PT SITTING EDGE OF [facility], JUST MOANING AND NOT ATTMPTING TO STAND. PT LAYED BACK ONTO [facility]. NOTIFIED. PER , OK FOR PT TO REST AND MTF. IT IS UNKNOWN IF PT HAS TAKEN ANY DRUGS, PT HAS REFUSED TO PROVIDE URINE SAMPLE.
--- NOTE | 2019-07-30 21:30 | NUR ---
PT SLEEPING ON MARJORIEDEBRA. CECE.
--- NOTE | 2019-07-30 22:13 | NUR ---
THIS RN AND ANOTHER RN ATTEMPTED TO GET PT UP OUT OF BED, PT REFUSED. SECURITY CALLED FOR ASSISTANCE. TAXI VOUCHER GIVEN TO PT. TAXI CALLED FOR PT TO GET TO RETIREMENT.
--- NOTE | 2019-07-30 22:16 | NUR ---
PT AMBULATED TO DC WITH CANE, STEADY GAIT, AND SECURITY.
== END 2019-07-30 22:19 | disposition home or self-care (01) ==
LOC: ED 21:09
DX: F11.122 Opioid abuse with intoxication with perceptual disturbance (principal); R44.3 Hallucinations, unspecified; E11.9 Type 2 diabetes mellitus without complications; J44.9 Chronic obstructive pulmonary disease, unspecified
CPT/HCPCS: 36415; 80053; 85025; 99283

== ENCOUNTER 2019-07-31 00:02 | Emergency (ER) | payer MEDICARE ==
[~2019-07-31] VITALS: Ht 170.2 cm; Wt 73.0 kg
[2019-07-31 00:08] VITALS: BP 174/145
--- NOTE | 2019-07-31 01:01 | NUR ---
PT REFUSING TO BE DC'D. CALLED SECURITY TO HELP ESCORT PT OUT. PT SWEARING AT MYSELF AND DEMAND PLANNING MANAGER. INFORMED PT THAT HE HAS BEEN SEEN AND EVALUATED BY A PROVIDER AND HAS BEEN DC'D AND TO FOLLOW UP WITH PCP. PT WALKED TO WHEELCHAIR WITHOUT ASSISTANCE AND WAS ESCORTED OUT BY SECURITY.
== END 2019-07-31 01:04 | disposition home or self-care (01) ==
LOC: ED 00:48
DX: B35.1 Tinea unguium (principal); Z72.9 Problem related to lifestyle, unspecified; E11.9 Type 2 diabetes mellitus without complications; G89.29 Other chronic pain; J44.9 Chronic obstructive pulmonary disease, unspecified
CPT/HCPCS: 99283

== ENCOUNTER 2019-07-31 12:01 | Emergency (ER) | payer MEDICARE, OTHER ==
[~2019-07-31] VITALS: Ht 167.6 cm; Wt 66.4 kg
[2019-07-31 12:11] VITALS: BP 163/84
--- NOTE | 2019-07-31 13:07 | NUR ---
SLASH TRIMMER: PT TO ROOM FROM LOBBY, AMBULATORY
--- NOTE | 2019-07-31 14:23 | NUR ---
PT VERBALLY AGGRESSIVE FOR DC. SECURITY ESCORTED PT TO EXIT
== END 2019-07-31 14:24 | disposition home or self-care (01) ==
LOC: ED 14:09
DX: M79.671 Pain in right foot (principal); M79.662 Pain in left lower leg; F17.200 Nicotine dependence, unspecified, uncomplicated
CPT/HCPCS: 99281

== ENCOUNTER 2019-10-04 16:57 | Emergency (ER) | payer MEDICAID, MEDICARE ==
[~2019-10-04] VITALS: Ht 175.3 cm; Wt 72.0 kg
[2019-10-04 18:43] LABS: BASOPHILS # (AUTO) 0.05 x10^3/uL (0-0.1); BASOPHILS % (AUTO) 0 % (0-1); EOSINOPHILS # (AUTO) 0.19 x10^3/uL (0-0.4); EOSINOPHILS % (AUTO) 2 % (1-7); LYMPHOCYTES # (AUTO) 1.35 x10^3/uL (1-3.4); LYMPHOCYTES % (AUTO) 11 % (22-44); MD NO; MEAN CORPUSCULAR HEMOGLOBIN 27.2 pg (27.5-34.5); MEAN CORPUSCULAR HGB CONC 33.6 g/dL (33.2-36.2); MEAN CORPUSCULAR VOLUME 80.9 fL (81-97); MEAN PLATELET VOLUME 7.4 fL (7.4-10.4); MONOCYTES % (AUTO) 6 % (2-9); NEUTROPHILS # (AUTO) 10.16 x10^3/uL (1.8-6.8); NEUTROPHILS % (AUTO) 82 % (42-75); PLATELET COUNT 200 x10^3/uL (130-400); RED BLOOD COUNT 5.63 x10^6/uL (4.38-5.82); RED CELL DISTRIBUTION WIDTH 15.6 % (9.4-14.8)
[2019-10-04 18:54] LABS: ALANINE AMINOTRANSFERASE 21 U/L (12-78); ALBUMIN 3.4 g/dL (3.4-5.0); ANION GAP 9 mmol/L (5-15); CALCIUM 8.4 mg/dL (8.5-10.1); CHLORIDE 104 mmol/L (98-107); CREATININE 1.01 mg/dL (0.7-1.3)
[2019-10-04 18:57] LABS: ALKALINE PHOSPHATASE 102 U/L (45-117); BILIRUBIN,TOTAL 0.8 mg/dL (0.2-1.0); TOTAL PROTEIN 7.8 g/dL (6.4-8.2)
--- NOTE | 2019-10-04 19:16 | NUR ---
PT BIB EMS FROM BUS STATION FOR [place]. PT STATES "I THINK I WAS IN THE SUN FOR TOO LONG. ITS SO HOT. ALSO I HAVE NERVE PAIN. I HAD TO CRAWL TO THE BATHROOM YESTERDAY". PT IS RESTING IN [place]. CONNECTED TO MONITORING EQUIPMENT. LABS DRAWN. X RAY TAKEN. PROVIDER IS BEDSIDE FOR ASSESSMENT.
[2019-10-04] MEDS ORDERED: DIAZEPAM 5 MG TABLET ONE (19:18)
[2019-10-04] MEDS ORDERED: KETOROLAC 30 MG/1 ML ONE (19:18)
[2019-10-04] MEDS ORDERED: DIAZEPAM 5 MG TABLET PO ONE (19:30)
[2019-10-04] MEDS ORDERED: KETOROLAC 30 MG/1 ML IM ONE (19:30)
[2019-10-04 20:36] VITALS: BP 130/72
--- NOTE | 2019-10-04 20:37 | NUR ---
TASK RN: Patient given discharge instructions and they have confirmed that they understand the instructions. Patient ambulatory with steady gait. GIVEN TAXI VOUCHER, NO BELONGINGS LEFT IN ROOM AT MD. NAD. GIVEN SNACKS.
== END 2019-10-04 20:39 ==
LOC: ED 20:33
DX: M51.36 Other intervertebral disc degeneration, lumbar region (principal); M54.42 Lumbago with sciatica, left side; F17.210 Nicotine dependence, cigarettes, uncomplicated; Z72.9 Problem related to lifestyle, unspecified; Z76.0 Encounter for issue of repeat prescription; E11.9 Type 2 diabetes mellitus without complications; J44.9 Chronic obstructive pulmonary disease, unspecified; G89.29 Other chronic pain
CPT/HCPCS: 36415; 72110; 80053; 85025; 96372; 99284; 99406; J1885

== ENCOUNTER 2019-10-19 11:51 | Emergency (ER) | payer MEDICARE ==
[~2019-10-19] VITALS: Ht 172.7 cm; Wt 68.2 kg
[2019-10-19 11:51] VITALS: BP 147/75
--- NOTE | 2019-10-19 11:51 | NUR ---
PT TO DECON/SHOWER ROOM UPON ARRIVAL.
--- NOTE | 2019-10-19 13:07 | NUR ---
PT SHOWERED FOR +BED BUS, CLOTHES TIED UP IN PLASTIC ABG, PT GIVEN SOCKS, SCRUB PANTS, GOWN & BLANKET FOR DC.
== END 2019-10-19 13:20 | disposition home or self-care (01) ==
LOC: ED 12:30
DX: L03.221 Cellulitis of neck (principal); L03.312 Cellulitis of back [any part except buttock and flank]; R21 Rash and other nonspecific skin eruption; J44.9 Chronic obstructive pulmonary disease, unspecified; E11.9 Type 2 diabetes mellitus without complications
CPT/HCPCS: 99283

== ENCOUNTER 2019-12-15 17:46 | Emergency (ER) | payer MEDICAID, MEDICARE ==
[~2019-12-15] VITALS: Ht 167.6 cm; Wt 70.5 kg
--- NOTE | 2019-12-15 17:51 | NUR ---
PLEATER: PT BIB BY AMBULANCE DUE TO "NO PLACE TO STAY TONIGHT, KICKED OUT OF [facility], AND POSITIVE FOR COVID-19". VIOLA KABA NOTIFIED TO ASSIST
[2019-12-15 18:03] VITALS: BP 148/81
== END 2019-12-15 19:26 | disposition home or self-care (01) ==
LOC: ED 18:39
DX: J18.9 Pneumonia, unspecified organism (principal); J43.9 Emphysema, unspecified; Z95.0 Presence of cardiac pacemaker; E11.9 Type 2 diabetes mellitus without complications; Z59.0 Homelessness
CPT/HCPCS: 71045; 99283

== ENCOUNTER 2020-02-21 07:06 | Emergency (ER) | payer MEDICARE ==
[~2020-02-21] VITALS: Ht 172.7 cm; Wt 64.5 kg
[~2020-02-21 07:06] MED LIST changes: -NICO-487 TD; +NICO-587 TD
[2020-02-21 07:09] VITALS: BP 152/76
--- NOTE | 2020-02-21 09:02 | NUR ---
Patient given discharge instructions and they have confirmed that they understand the instructions. Patient ambulatory with steady gait.
== END 2020-02-21 09:03 | disposition home or self-care (01) ==
LOC: ED 07:51
DX: J43.9 Emphysema, unspecified (principal); R07.9 Chest pain, unspecified; E11.9 Type 2 diabetes mellitus without complications
CPT/HCPCS: 71045; 99283

== ENCOUNTER 2020-02-22 06:21 | Emergency (ER) | payer MEDICARE ==
[~2020-02-22] VITALS: Ht 175.3 cm; Wt 68.0 kg
--- NOTE | 2020-02-22 07:12 | NUR ---
SBAR RPT REC'D, ASSUMED PT CARE. PT SLEEPING, RESP EVEN NON-LABORED.
[2020-02-22 08:58] VITALS: BP 103/67
--- NOTE | 2020-02-22 08:59 | NUR ---
BREAKFAST TRAY PROVIDED. Patient/Caregiver given discharge instructions and they have confirmed that they understand the instructions. Patient ambulatory with steady gait.
== END 2020-02-22 09:00 | disposition home or self-care (01) ==
LOC: ED 07:26
DX: R05 Cough (principal); R09.89 Other specified symptoms and signs involving the circulatory and respiratory systems; Z72.9 Problem related to lifestyle, unspecified; E11.9 Type 2 diabetes mellitus without complications; J44.9 Chronic obstructive pulmonary disease, unspecified
CPT/HCPCS: 99283